=== PATIENT | male | born 1945 | race Caucasian/White ===

== ENCOUNTER → 2023-04-23 07:17 | Outpatient (REF) | payer OTHER, SELFPAY | LOC: RAD 07:17 | PROVIDERS: ATTENDING PHYSICIAN Physician Assistant Medical | DX: H53.8 Other visual disturbances (principal); W19.XXXA Unspecified fall, initial encounter; M54.2 Cervicalgia; M25.512 Pain in left shoulder | CPT/HCPCS: 70450; 72050; 73030 ==

== ENCOUNTER → 2023-11-26 16:13 | Outpatient (REF) | payer OTHER, SELFPAY | LOC: HWRAD 16:13 | PROVIDERS: ATTENDING PHYSICIAN Physician Assistant Medical | DX: Z20.828 Contact with and (suspected) exposure to other viral communicable diseases (principal) | CPT/HCPCS: 72110 ==

== ENCOUNTER → 2023-12-02 15:44 | Outpatient (REF) | payer OTHER, SELFPAY | LOC: HWRAD 15:44 | PROVIDERS: ATTENDING PHYSICIAN Physician Assistant Medical | DX: R05.1 Acute cough (principal) | CPT/HCPCS: 71046 ==

== ENCOUNTER 2023-12-19 12:02 | Emergency (ER) | payer OTHER, SELFPAY ==
[2023-12-19] VITALS (7 sets, daily range): BP systolic 138–213; BP diastolic 63–127
[2023-12-19 12:33] LABS: % Basophils 0.4 % (0-2); % Eosinophils 3.4 % (0-6); % Immature Granulocytes 0.2 % (0-0.5); % Lymphocytes 14.6 % (20.5-51.1); % Monocytes 6.8 % (1.7-9.3); % Neutrophils 74.6 % (42.2-75.2); Absolute Eosinophils 0.3 10^3/uL (0-0.7); Absolute Lymphocytes 1.2 10^3/uL (1.2-3.4); Absolute Monocytes 0.6 10^3/uL (0.1-0.6); Absolute Neutrophils 6.1 10^3/uL (1.4-6.5); Hematocrit 42.6 % (39.0-52.0); Hemoglobin 14.2 g/dL (13.0-18.0); Mean Corp Hgb Conc. 33.3 g/dL (33.0-37.0); Mean Corpuscular Volume 90.1 fL (80.0-94.0); Mean Platelet Volume 9.4 fL (7.4-10.4); Nucleated Red Blood Cells % 0 % (-); Platelet Count 178 10^3/uL (130-400); Red Blood Cell Count 4.73 10^6/uL (4.70-6.10); White Blood Cell Count 8.2 10^3/uL (4.8-10.8)
[2023-12-19 13:08] LABS: Troponin I < 0.012 ng/ml
[2023-12-19 13:15] LABS: Blood Urea Nitrogen 20 mg/dl (9-20); Calcium 9.9 mg/dl (8.4-10.2); Carbon Dioxide 25 mmol/L (22-30); Chloride 106 mmol/L (98-107); Glucose 123 mg/dl (70-99); Sodium 141 mmol/L (135-145); eGFR > 60.00
--- NOTE | 2023-12-19 13:24 | ED.GENMED ---
History of Present Illness
General
Chief Complaint: Blood Pressure Problem
Time Seen by Provider: 12/19/23 12:50
History of Present Illness
History of Present Illness:
78-year-old male with history of cerebral palsy, hypertension and hyperlipidemia presents to emergency department for evaluation of dizziness that began upon awakening yesterday morning. He states he felt very dizzy when he woke up and thus went
back to sleep, awoke several hours later with continued symptoms. He also noted marked hypertension at home on a home cuff after onset of symptoms. Denies any headache, vision changes, neck pain, chest pain, or shortness of breath. The dizziness
is worse when he ambulates, described as lightheaded and not vertiginous.
Past History
Past History
ED Past Medical History: GERD, HTN, Hypercholesterolemia and Other
ED Past Surgical History: Orthopedic and Other
Social History
Tobacco: Non-smoker
Alcohol: None
Personal: Single
Living: alone
Employment: Retired
Family History
Family History: Other (Noncontributory)
Review of Systems
Review of Systems
Allergies reviewed?: Yes
All Other Systems: ROS reviewed and negative except as documented in HPI and ROS
Phy Exam
Physical Exam
Physical Exam:
GEN: Well appearing, NAD, WDWN
HEENT: Oral mucosa moist, no scleral icterus, no nasal congestion
Cardiac: Regular rate
Lung: No respiratory distress, no tachypnea
MSK: No gross deformity or injuries
Skin: Good color, no pallor or jaundice, no rashes
Neuro: AO x3; right eye displays decreased lateral gaze in both directions, clearly disconjugate extraocular motions with no reported diplopia; remainder of cranial nerves II through XII are grossly intact BUE strength 5/5 in all [place], sensation
intact and symmetric. BLE strength 5/5 in all [place], sensation intact and symmetric
Psych: Calm, cooperative
Course
Orders/Labs/Results
Orders:
Orders
12/19/23 12:09
EKG [Electrocardiogram (*1)] Urgent
Reason for Study: Vertigo / Dizzy
12/19/23 12:10
EKG- Treatment ONCE
12/19/23 12:24
Basic Metabolic Panel Urgent
Complete Blood Count/With Diff Urgent
Troponin I Urgent
12/19/23 13:14
CT Head & Neck Angio W/wo IV Urgent
Comment:
Reason For Exam: TIA/stroke
12/19/23 15:13
NEUROLOGY CONSULT Urgent
Consulting Provider: Zeynep Carias
Was physician already notified: Yes
Abnormal Lab Results
12/19/23
12:24
Lymphocytes % 14.6 L %
(20.5-51.1)
Glucose 123 H mg/dl
(70-99)
12/19/23 12:24
12/19/23 12:24
Vital Signs
Initial and Last Documented VS:
Initial Vital Signs
Temp Pulse Resp BP Pulse Ox
98.3 F 71 20 195/82 97
12/19/23 12:10 12/19/23 12:10 12/19/23 12:10 12/19/23 12:10 12/19/23 12:10
Last Documented Vital Signs
Temp Pulse Resp BP Pulse Ox
98.3 F 72 23 153/72 95
12/19/23 12:10 12/19/23 16:45 12/19/23 16:30 12/19/23 16:00 12/19/23 16:15
MDM/Problems Addressed
MDM/Problems Addressed:
After initial evaluation I was concerned about a potential midbrain stroke however on reevaluation patient informed me that he has 'a lazy eye' that he declined to tell me about initially. He was seen in consultation by neurology who is no concern
about a neurologic process. Likely some degree of orthostatic hypotension, he felt improved after ER evaluation and treatment, discharged in stable condition
Comment
Comment:
EKG independently interpreted by me shows normal sinus rhythm with biphasic T waves in the lateral leads, new compared to prior, inferior leads with patient motion limiting interpretation
*Critical Care Note
Total Time (30-74mins, 75-104mins- exclusive of procedures): Not Applicable
ED Attending Note
-
Portions of this chart may have been created with voice recognition software.� Occasional wrong word or��sound alike� substitutions may have occurred due to the inherent limitations of voice recognition software.
Discharge Plan
Departure
Patient Disposition: Home (Routine Discharge)
Date of Disposition: 12/19/23
Time of Disposition: 17:05
Patient with high blood pressure during this ER visit?: No
Discharge Problem:
Dizziness
Instructions: Dizziness, Nonvertigo, (DC)
Prescriptions:
No Action
atorvastatin 10 MG tablet
20 mg PO QPM
pantoprazole 40 MG tablet,delayed release (DR/EC)
40 mg PO DAILY
azelastine [Astepro] 137 MCG/0.137 ML aerosol,spray
2 spray intranasal DAILY
fluticasone propionate 1 SPRAY spray,suspension
2 spray intranasal DAILY
atenolol 50 MG tablet
50 mg PO DAILY
olmesartan [Benicar] 5 MG tablet
10 mg PO DAILY
omega 0-gjo-bsm-fish oil 1 EACH capsule
2 ea PO BID
famotidine 20 MG tablet
20 mg PO DAILY
benzonatate 100 MG capsule
100 mg PO TID PRN (Reason: cough)
levothyroxine 50 MCG tablet
50 mcg PO DAILY
naproxen sodium [Aleve] 220 MG tablet
220 mg PO BID
gabapentin 100 MG capsule
100 mg PO HS
albuterol sulfate 1 PUFF HFA aerosol inhaler
1 puff inhalation R Q4HPRN PRN (Reason: sob)
Referrals:
Josselyn Perez PA-C [Family Provider] -
Interventions
Interventions:
*Risk Screen - Suicide Last Done: 12/19/23 13:30
*General Assessment Last Done: 12/19/23 12:10
*Neglect/Abuse Screening Last Done: 12/19/23 13:30
ED- Fall Risk Assessment Last Done: 12/19/23 17:14
*ED COVID-19 Vaccine History Last Done: 12/19/23 13:27
*Nursing Disposition Last Done: 12/19/23 17:14
ED- Pulmonary Assessment Last Done: 12/19/23 13:27
ED- Neurological Assessment Last Done: 12/19/23 13:27
ED- Cardiac Assessment Last Done: 12/19/23 13:29
Discharge Date and Time
Discharge Date/Time: 12/19/23 17:15
Print Language: BELARUSIAN
--- NOTE | 2023-12-19 16:30 | CON.NEURO ---
Consultation
Order
Date of Consultation: 12/19/23
Requesting Provider:
Reason for Consult: dizziness
CC: ' My pressure was elevated'
HPI: This is a 78-year-old man who presented to [facility] on December 19, 2023 with blood pressure elevation. Neurology consultation was requested for evaluation and management of dizziness.
According to the patient he has had intermittent lightheadedness lasting for several minutes with associated worsening of baseline imbalance that started yesterday. No lightheadedness was provoked by getting up from seated position. He admits to
have unexplained slurred resulting in near fall after he urinated. The patient contacted his [id number] who recommended to check his blood pressure at he found to be significantly elevated leading to ER visit after his PCP was unable to see him.
No reports of dysarthria, new motor, sensory visual deficits.
No recently started discontinued medications.
ER VS: 195/82-213/97, 71, afebrile
PDMP:no Rxed meds
Labs: Glucose�123, normal sodium, creatinine,
EKG: NSR, QTc Int : [address] head-Mild to moderate atrophy.
CTA head/neck-no LVO
PMH: Learning impairment, talipes, history of cervical spinal stenosis, HTN, DLP, GERD
PSH:C2 to C7 fusion, bilateral foot surgeries, mother with thyroid and breast cancer, father�stroke, dementia. Left shoulder arthroplasty, right inguinal hernia repair, bilateral cataract surgery.
SH: Single, lives at independent living at [facility], has never driven. 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
FH: Mother�breast cancer, father�dementia
All: Codeine, azithromycin
ROS:Constitutional: Negative. Negative for chills, fever and unexpected weight change.
HENT: Positive for impaired hearing and chronic rhinorrhea.
Eyes: Negative. Negative for photophobia, pain and visual disturbance.
Respiratory: Negative for cough, choking and shortness of breath.
Cardiovascular: Negative for chest pain, palpitations and leg swelling.
Gastrointestinal: Negative for abdominal pain and vomiting.
Endocrine: Negative. Negative for cold intolerance.
Genitourinary: Negative for dysuria, flank pain and urgency.
Musculoskeletal: Negative for back pain, gait problem, neck pain and neck stiffness.
Skin: Negative for rash.
Allergic/Immunologic: Negative. Negative for immunocompromised state.
Neurological: Positive for imbalance, numbness in the feet
Psychiatric/Behavioral: Negative for behavioral problems, confusion and hallucinations.
General: Well developed. In no acute distress.
Cardio: Regular rate and rhythm without murmur. Extremities are without cyanosis or edema.
Neuro:
Mental Status: Alert, oriented to person, place, and date. Normal attention and recall. Follows complex requests across the midline. Comprehension, naming, and repetition intact.
Cranial Nerves: Right esotropia in primary gaze. Pupils are equally round, surgical. EOMs full except for right abduction palsy.. Visual [place] full to confrontation. No ptosis. No nystagmus. V1-V3 intact to light touch and pinprick
bilaterally, symmetric. Face symmetric. Impaired hearing AU. The palate elevated well. SCMs and traps 5/5. Tongue midline. No dysarthria. High-pitched voice.
Motor: Lower leg atrophy, increased motor tone in the left except for bilateral dorsiflexion weakness. No pronator or arm drift. Strength 5/5 throughout No clonus.
Reflexes: Limited exam due to positioning and cooperation. No clonus at the ankles. Bilateral grasp.
Sensory: Reduced vibration in the toes and ankles.
Coordination: No dysmetria or tremor.
Gait: deferred
Asymmetric pes cavus
Assessment and Plan:
I. Hypertensive emergency
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
III. Ambulatory dysfunction
IV. Mild encephalopathy open (congenital, vascular)
-Fall precautions
-please obtain orthostatic VS
-PT
-BP optimization
-DVT prophylaxis
I personally reviewed all radiology and labs along with past medical records pertinent to current medical problems. Total time spent in patient care is 60 minutes.
Thank you for allowing us to participate in the care of this patient. We will continue to follow. Please do not hesitate to contact us with any questions or concerns.
Subjective/Objective
Subjective Data
Date of Service: December 19, 2023
Objective Data
Vital Signs
Temp Pulse Resp BP Pulse Ox
36.8 C 67 17 213/97 96
12/19/23 12:10 12/19/23 15:45 12/19/23 15:45 12/19/23 15:32 12/19/23 15:45
Lab Results
12/19/23 12:24
12/19/23 12:24
Sodium 141 mmol/L (135-145) 12/19/23 12:24
Sodium Cancelled 12/19/23 12:24
Potassium mmol/L (3.5-5.1) 12/19/23 12:24
Potassium Cancelled 12/19/23 12:24
BUN 20 mg/dl (9-20) 12/19/23 12:24
BUN Cancelled 12/19/23 12:24
Glucose 123 mg/dl (70-99) H 12/19/23 12:24
Glucose Cancelled 12/19/23 12:24
Calcium 9.9 mg/dl (8.4-10.2) 12/19/23 12:24
Calcium Cancelled 12/19/23 12:24
Patient Allergies
azithromycin [From Zithromax] Allergy (Verified 12/19/23 12:10)
Hives
codeine Allergy (Verified 12/19/23 12:10)
Hives
Medications
-
Home Medications
�Medication �Instructions �Recorded
atenolol 50 mg tablet 50 mg PO DAILY 07/18/15
atorvastatin 10 mg tablet 20 mg PO QPM 07/18/15
azelastine 137 mcg (0.1 %) nasal 2 spray intranasal DAILY 07/18/15
spray (Astepro)
fluticasone propionate 50 2 spray intranasal DAILY 07/18/15
mcg/actuation nasal
spray,suspension
olmesartan 5 mg tablet (Benicar) 10 mg PO DAILY 07/18/15
omega 2-abt-nth-fish oil 250 2 ea PO BID 07/18/15
mg-500 mg-1,000 mg capsule
pantoprazole 40 mg tablet,delayed 40 mg PO DAILY 07/18/15
release
albuterol sulfate 90 mcg/actuation 1 puff inhalation R Q4HPRN PRN sob 08/22/18
aerosol inhaler
benzonatate 100 mg capsule 100 mg PO TID PRN cough 08/22/18
famotidine 20 mg tablet 20 mg PO DAILY 08/22/18
gabapentin 100 mg capsule 100 mg PO HS 08/22/18
levothyroxine 50 mcg tablet 50 mcg PO DAILY 08/22/18
naproxen sodium 220 mg tablet 220 mg PO BID 08/22/18
(Aleve)
Vital Signs and Labs
-
Vital Signs and Labs:
Vital Signs
Temp Pulse Resp BP Pulse Ox
36.8 C 67 17 213/97 96
12/19/23 12:10 12/19/23 15:45 12/19/23 15:45 12/19/23 15:32 12/19/23 15:45
Lab Results
12/19/23 12:24
12/19/23 12:24
Sodium 141 mmol/L (135-145) 12/19/23 12:24
Sodium Cancelled 12/19/23 12:24
Potassium mmol/L (3.5-5.1) 12/19/23 12:24
Potassium Cancelled 12/19/23 12:24
BUN 20 mg/dl (9-20) 12/19/23 12:24
BUN Cancelled 12/19/23 12:24
Glucose 123 mg/dl (70-99) H 12/19/23 12:24
Glucose Cancelled 12/19/23 12:24
Calcium 9.9 mg/dl (8.4-10.2) 12/19/23 12:24
Calcium Cancelled 12/19/23 12:24
Home Medications
-
Home Medications
atenolol 50 mg tablet 50 mg PO DAILY 07/18/15
atorvastatin 10 mg tablet 20 mg PO QPM 07/18/15
azelastine 137 mcg (0.1 %) nasal spray (Astepro) 2 spray intranasal DAILY 07/18/15
fluticasone propionate 50 mcg/actuation nasal spray,suspension 2 spray intranasal DAILY 07/18/15
olmesartan 5 mg tablet (Benicar) 10 mg PO DAILY 07/18/15
omega 4-bmx-zln-fish oil 250 mg-500 mg-1,000 mg capsule 2 ea PO BID 07/18/15
pantoprazole 40 mg tablet,delayed release 40 mg PO DAILY 07/18/15
albuterol sulfate 90 mcg/actuation aerosol inhaler 1 puff inhalation R Q4HPRN PRN sob 08/22/18
benzonatate 100 mg capsule 100 mg PO TID PRN cough 08/22/18
famotidine 20 mg tablet 20 mg PO DAILY 08/22/18
gabapentin 100 mg capsule 100 mg PO HS 08/22/18
levothyroxine 50 mcg tablet 50 mcg PO DAILY 08/22/18
naproxen sodium 220 mg tablet (Aleve) 220 mg PO BID 08/22/18
== END 2023-12-19 17:15 | disposition home or self-care (01) ==
LOC: EMR 12:02
PROVIDERS: CONSULT PHYSICIAN Psychiatry & Neurology Neurology; EMERGENCY PHYSICIAN Emergency Medicine; FAMILY PHYSICIAN Physician Assistant Medical
DX: R42 Dizziness and giddiness (principal); I16.1 Hypertensive emergency; G80.9 Cerebral palsy, unspecified; E78.00 Pure hypercholesterolemia, unspecified; G62.9 Polyneuropathy, unspecified
CPT/HCPCS: 99285; 70496; 70498; 80048; 84484; 85025; 93005; Q9967

== ENCOUNTER → 2024-01-04 13:55 | Outpatient (REF) | payer OTHER, SELFPAY | LOC: DHSLP 13:55 | PROVIDERS: ATTENDING PHYSICIAN Internal Medicine Critical Care Medicine; FAMILY PHYSICIAN Physician Assistant Medical | DX: G47.33 Obstructive sleep apnea (adult) (pediatric) (principal) | CPT/HCPCS: 95810 ==

== ENCOUNTER → 2024-01-05 07:00 | Outpatient (REF) | payer OTHER, SELFPAY | LOC: DHSLP 07:00 | PROVIDERS: ATTENDING PHYSICIAN Internal Medicine Critical Care Medicine; FAMILY PHYSICIAN Physician Assistant Medical | DX: G47.19 Other hypersomnia (principal) | CPT/HCPCS: 95805 ==

== ENCOUNTER → 2024-01-18 14:38 | Outpatient (REF) | payer OTHER, SELFPAY | LOC: RAD 14:38 | PROVIDERS: ATTENDING PHYSICIAN Family Medicine | DX: R60.0 Localized edema (principal) | CPT/HCPCS: 93970 ==

== ENCOUNTER → 2024-08-31 15:22 | Outpatient (REF) | payer OTHER, SELFPAY | LOC: RAD 15:22 | PROVIDERS: ATTENDING PHYSICIAN Physician Assistant Medical | DX: R35.0 Frequency of micturition (principal); M79.661 Pain in right lower leg | CPT/HCPCS: 93971 ==